=== PATIENT | male | born 1980 | race African-American/Black ===

== ENCOUNTER 2022-07-19 12:07 | Inpatient (IN) | payer OTHER ==
[2022-07-19 13:27] VITALS: BMI 27.3
[2022-07-19] MEDS ORDERED: BISMUTH SUBSALICYLATE 524 MG/30 ML PO PRN (16:02)
[2022-07-19] MEDS ORDERED: IBUPROFEN 400 MG TABLET (FP) PO PRN (16:02)
[2022-07-19] MEDS ORDERED: DICYCLOMINE HCL 10 MG CAPSULE PO PRN (16:02)
[2022-07-19] MEDS ORDERED: MAGNESIUM HYDROX 2400MG/30ML ORAL SUSPENSION 30 ML CUP PO PRN (16:02)
[2022-07-19] MEDS ORDERED: MAGNESIUM CITRATE 300 ML BOTTLE PO PRN (16:02)
[2022-07-19] MEDS ORDERED: METHOCARBAMOL 500 MG TABLET PO PRN (16:02)
[2022-07-19] MEDS ORDERED: IBUPROFEN 600 MG TABLET (FP) PO PRN (16:02)
[2022-07-19] MEDS ORDERED: ONDANSETRON *ODT* 4 MG TABLET SL PRN (16:02)
[2022-07-19] MEDS ORDERED: LOPERAMIDE HCL 2 MG CAPSULE PO PRN (16:02)
[2022-07-19] MEDS ORDERED: ACETAMINOPHEN 325 MG TABLET (FP) PO PRN ×2 (16:02)
[2022-07-19] MEDS ORDERED: NALOXONE HCL (KLOXXADO) 8 MG SPRAY NS PRN (16:02)
[2022-07-19] MEDS ORDERED: MAG HYDROX/AL HYDROX/SIMETH 30 ML UNIT-DOSE CUP PO PRN (16:02)
[2022-07-19] MEDS ORDERED: BENZOCAINE/MENTHOL (CHLORASEPTIC ) LOZENGE MM PRN (16:02)
[2022-07-19] MEDS: NICOTINE 21 MG/24 HOURS TOPICAL PATCH TD SCH (19:53)
[2022-07-19] MEDS: PRENATAL VITAMINS W/ FOLIC ACID TABLET (FP) PO SCH (19:54)
[2022-07-19] MEDS: hydrOXYzine PAMOATE 25 MG CAPSULE (FP) PO SCH ×2 (19:54→22:14)
[2022-07-19] MEDS: THIAMINE HCL 100 MG TABLET (FP) PO SCH (22:14)
[2022-07-19] MEDS: MELATONIN 5 MG TABLETS PO SCH (22:15)
[2022-07-20] MEDS: hydrOXYzine PAMOATE 25 MG CAPSULE (FP) PO SCH ×5 (06:40→22:23)
[2022-07-20] MEDS: PRENATAL VITAMINS W/ FOLIC ACID TABLET (FP) PO SCH (10:26)
[2022-07-20] MEDS: NICOTINE 21 MG/24 HOURS TOPICAL PATCH TD SCH (10:27)
[2022-07-20] MEDS: PERPHENAZINE 2 MG TABLET PO SCH ×3 (10:27→22:23)
[2022-07-20 12:51] LABS: HEMATOCRIT 38.6 % (35.4-49); HEMOGLOBIN 13.2 GM/dL (11.7-16.9); MCH 32.1 pg (25.7-33.7); MCHC 34.2 g/dl (32.0-35.9); MEAN CELL VOLUME 93.8 fl (80-96); MEAN PLT VOLUME 10.1 fl (7.5-11.1); PLATELET COUNT 137 10^3/uL (134-434); RBC 4.12 M/mm3 (4.00-5.60); RDW 13.5 % (11.9-15.9); WHITE BLOOD COUNT 7.2 K/mm3 (4.0-10.0)
[2022-07-20 12:57] LABS: ALBUMIN 3.3 g/dl (3.4-5.0); BLOOD UREA NITROGEN 9.2 mg/dL (7-18); CALCIUM 9.5 mg/dL (8.5-10.1)
[2022-07-20 13:00] LABS: CREATININE 1.1 mg/dL (0.55-1.3)
[2022-07-20 13:02] LABS: BILIRUBIN,TOTAL 0.5 mg/dL (0.2-1)
[2022-07-20] MEDS: NICOTINE 10 MG CARTRIDGE (INHALER) IH PRN (18:52)
[2022-07-20] MEDS ORDERED: chlordiazePOXIDE HCL 25 MG CAPSULE PO PRN (20:44)
[2022-07-20] MEDS: chlordiazePOXIDE HCL 25 MG CAPSULE PO SCH (22:23)
[2022-07-20] MEDS: THIAMINE HCL 100 MG TABLET (FP) PO SCH (22:23)
[2022-07-20] MEDS: MELATONIN 5 MG TABLETS PO SCH (22:23)
[2022-07-21] MEDS: hydrOXYzine PAMOATE 25 MG CAPSULE (FP) PO SCH ×3 (05:43→15:12)
[2022-07-21] MEDS: chlordiazePOXIDE HCL 25 MG CAPSULE PO SCH ×2 (05:43→10:38)
[2022-07-21 06:05] VITALS: RESP 18
[2022-07-21] MEDS: NICOTINE 10 MG CARTRIDGE (INHALER) IH PRN ×2 (06:56→15:26)
[2022-07-21] MEDS: PRENATAL VITAMINS W/ FOLIC ACID TABLET (FP) PO SCH (10:37)
[2022-07-21] MEDS: PERPHENAZINE 2 MG TABLET PO SCH (10:37)
[2022-07-21] MEDS: NICOTINE 21 MG/24 HOURS TOPICAL PATCH TD SCH (10:39)
[2022-07-21 18:26] VITALS: BP 146/100; PULSE 61; TEMP 97.2
[2022-07-21] MEDS ORDERED: chlordiazePOXIDE HCL 10 MG CAPSULE PO SCH (23:00)
[2022-07-22] MEDS ORDERED: chlordiazePOXIDE HCL 10 MG CAPSULE PO SCH (05:00)
[2022-07-23] MEDS ORDERED: chlordiazePOXIDE HCL 10 MG CAPSULE PO PRN
[2022-07-23] MEDS ORDERED: chlordiazePOXIDE HCL 10 MG CAPSULE PO ONE (05:00)
== END 2022-07-21 17:23 | disposition left against medical advice (07) | DRG 894 ==
LOC: YASAS 12:07 → Y3N 16:19 → UNDOADMIN 16:19
PROVIDERS: ADMIT Allergy & Immunology; ATTEND Surgery
PROC: HZ2ZZZZ Detoxification Services for Substance Abuse Treatment (ICD-10-PCS; principal; 2022-07-19)
DX: F10.230 Alcohol dependence with withdrawal, uncomplicated (principal); F17.210 Nicotine dependence, cigarettes, uncomplicated; F20.9 Schizophrenia, unspecified; I10 Essential (primary) hypertension; E11.9 Type 2 diabetes mellitus without complications; Z79.84 Long term (current) use of oral hypoglycemic drugs; Z59.02 Unsheltered homelessness
CPT/HCPCS: 36415; 80053; 80178; 82962; 85027; 86780; 93005; 93010; C9803-CS; U0003; U0005

== ENCOUNTER 2022-07-22 15:16 | Inpatient (IN) | payer OTHER ==
[2022-07-22 17:47] VITALS: BMI 27.8
[2022-07-22] MEDS ORDERED: NICOTINE 10 MG CARTRIDGE (INHALER) IH PRN (18:10)
[2022-07-22] MEDS ORDERED: LOPERAMIDE HCL 2 MG CAPSULE PO PRN (18:10)
[2022-07-22] MEDS ORDERED: DICYCLOMINE HCL 10 MG CAPSULE PO PRN (18:10)
[2022-07-22] MEDS ORDERED: IBUPROFEN 400 MG TABLET (FP) PO PRN (18:10)
[2022-07-22] MEDS ORDERED: ONDANSETRON *ODT* 4 MG TABLET SL PRN (18:10)
[2022-07-22] MEDS ORDERED: MAG HYDROX/AL HYDROX/SIMETH 30 ML UNIT-DOSE CUP PO PRN (18:10)
[2022-07-22] MEDS ORDERED: IBUPROFEN 600 MG TABLET (FP) PO PRN (18:10)
[2022-07-22] MEDS ORDERED: BENZOCAINE/MENTHOL (CHLORASEPTIC ) LOZENGE MM PRN (18:10)
[2022-07-22] MEDS ORDERED: METHOCARBAMOL 500 MG TABLET PO PRN (18:10)
[2022-07-22] MEDS ORDERED: ACETAMINOPHEN 325 MG TABLET (FP) PO PRN ×2 (18:10)
[2022-07-22] MEDS ORDERED: NALOXONE HCL (KLOXXADO) 8 MG SPRAY NS PRN (18:10)
[2022-07-22] MEDS ORDERED: BISMUTH SUBSALICYLATE 524 MG/30 ML PO PRN (18:10)
[2022-07-22] MEDS ORDERED: MAGNESIUM HYDROX 2400MG/30ML ORAL SUSPENSION 30 ML CUP PO PRN (18:10)
[2022-07-22] MEDS ORDERED: MAGNESIUM CITRATE 300 ML BOTTLE PO PRN (18:10)
[2022-07-22] MEDS: PRENATAL VITAMINS W/ FOLIC ACID TABLET (FP) PO SCH (18:26)
[2022-07-22] MEDS: NICOTINE 21 MG/24 HOURS TOPICAL PATCH TD SCH (18:26)
[2022-07-22] MEDS ORDERED: LITHIUM CARBONATE 300 MG CAPSULE PO SCH (22:00)
[2022-07-22] MEDS: hydrOXYzine PAMOATE 25 MG CAPSULE (FP) PO SCH (22:31)
[2022-07-22] MEDS: THIAMINE HCL 100 MG TABLET (FP) PO SCH (22:31)
[2022-07-22] MEDS: MELATONIN 5 MG TABLETS PO SCH (22:31)
[2022-07-22] MEDS: metFORMIN HCL 500 MG TABLET (FP) PO SCH (22:32)
[2022-07-23] MEDS: hydrOXYzine PAMOATE 25 MG CAPSULE (FP) PO SCH ×5 (05:31→22:50)
[2022-07-23] MEDS: PERPHENAZINE 2 MG TABLET PO SCH ×2 (10:35→22:50)
[2022-07-23] MEDS: metFORMIN HCL 500 MG TABLET (FP) PO SCH ×2 (10:35→22:35)
[2022-07-23] MEDS: LITHIUM CARBONATE 150 MG CAPSULE PO SCH ×2 (10:35→22:50)
[2022-07-23] MEDS: PRENATAL VITAMINS W/ FOLIC ACID TABLET (FP) PO SCH (10:35)
[2022-07-23] MEDS: NICOTINE 21 MG/24 HOURS TOPICAL PATCH TD SCH (10:37)
[2022-07-23 11:29] LABS: HEMATOCRIT 40.5 % (35.4-49); HEMOGLOBIN 13.5 GM/dL (11.7-16.9); MCH 31.4 pg (25.7-33.7); MCHC 33.3 g/dl (32.0-35.9); MEAN CELL VOLUME 94.2 fl (80-96); MEAN PLT VOLUME 10.1 fl (7.5-11.1); PLATELET COUNT 145 10^3/uL (134-434); RDW 13.9 % (11.9-15.9)
[2022-07-23 11:32] LABS: CALCIUM 9.3 mg/dL (8.5-10.1)
[2022-07-23 11:33] LABS: ALBUMIN 3.2 g/dl (3.4-5.0); BLOOD UREA NITROGEN 10.7 mg/dL (7-18)
[2022-07-23 11:36] LABS: CREATININE 1.1 mg/dL (0.55-1.3)
[2022-07-23 11:38] LABS: BILIRUBIN,TOTAL 0.4 mg/dL (0.2-1); TOT PROT 5.9 g/dl (6.4-8.2)
[2022-07-23] MEDS: THIAMINE HCL 100 MG TABLET (FP) PO SCH (22:49)
[2022-07-23] MEDS: MELATONIN 5 MG TABLETS PO SCH (22:49)
[2022-07-24] MEDS: hydrOXYzine PAMOATE 25 MG CAPSULE (FP) PO SCH (05:55)
[2022-07-24 09:04] VITALS: BP 141/91; PULSE 72; RESP 16; TEMP 97.3
[2022-07-24] MEDS: LITHIUM CARBONATE 150 MG CAPSULE PO SCH (09:24)
[2022-07-24] MEDS: PERPHENAZINE 2 MG TABLET PO SCH (09:24)
[2022-07-24] MEDS: PRENATAL VITAMINS W/ FOLIC ACID TABLET (FP) PO SCH (09:24)
[2022-07-24] MEDS: metFORMIN HCL 500 MG TABLET (FP) PO SCH (09:24)
[2022-07-24] MEDS: NICOTINE 21 MG/24 HOURS TOPICAL PATCH TD SCH (09:25)
== END 2022-07-24 09:44 | disposition home or self-care (01) | DRG 897 ==
LOC: YASAS 15:16 → Y6N 18:18
PROVIDERS: ADMIT Allergy & Immunology; ATTEND Surgery
PROC: HZ2ZZZZ Detoxification Services for Substance Abuse Treatment (ICD-10-PCS; principal; 2022-07-22)
DX: F10.230 Alcohol dependence with withdrawal, uncomplicated (principal); F17.210 Nicotine dependence, cigarettes, uncomplicated; F25.0 Schizoaffective disorder, bipolar type; F10.24 Alcohol dependence with alcohol-induced mood disorder; I10 Essential (primary) hypertension; E11.9 Type 2 diabetes mellitus without complications; Z79.84 Long term (current) use of oral hypoglycemic drugs
CPT/HCPCS: 36415; 80053; 80178; 85027; 86780

== ENCOUNTER 2023-03-30 10:28 | Inpatient (IN) | payer OTHER ==
[2023-03-30 10:48] VITALS: BMI 26.6
[2023-03-30] MEDS ORDERED: LOPERAMIDE HCL 2 MG CAPSULE PO PRN (11:15)
[2023-03-30] MEDS ORDERED: NICOTINE 10 MG CARTRIDGE (INHALER) IH PRN (11:15)
[2023-03-30] MEDS ORDERED: ACETAMINOPHEN 325 MG TABLET (FP) PO PRN (11:15)
[2023-03-30] MEDS ORDERED: BISMUTH SUBSALICYLATE 262 MG/15 ML BTL PO PRN (11:15)
[2023-03-30] MEDS ORDERED: POLYETHYLENE GLYCOL (HEALTHYLAX) 3350 17 GM PACKET PO PRN (11:15)
[2023-03-30] MEDS ORDERED: BENZOCAINE/MENTHOL (CHLORASEPTIC ) LOZENGE MM PRN (11:15)
[2023-03-30] MEDS ORDERED: IBUPROFEN 400 MG TABLET (FP) PO PRN (11:15)
[2023-03-30] MEDS ORDERED: AMMONIUM LACTATE 12% LOTION 225 GM BOTTLE TP PRN (11:15)
[2023-03-30] MEDS ORDERED: NALOXONE HCL 0.4 MG/ML VIAL IM PRN (11:15)
[2023-03-30] MEDS ORDERED: ONDANSETRON *ODT* 4 MG TABLET SL PRN (11:15)
[2023-03-30] MEDS ORDERED: MAG HYDROX/AL HYDROX/SIMETH 30 ML UNIT-DOSE CUP PO PRN (11:15)
[2023-03-30] MEDS ORDERED: NICOTINE POLACRILEX 2 MG GUM BUC PRN (11:15)
[2023-03-30] MEDS ORDERED: COLLOIDAL OATMEAL 1 BAR EACH TP PRN (11:15)
[2023-03-30] MEDS ORDERED: NALOXONE HCL (KLOXXADO) 8 MG SPRAY NS PRN (11:15)
[2023-03-30] MEDS ORDERED: IBUPROFEN 600 MG TABLET (FP) PO PRN (11:15)
[2023-03-30] MEDS ORDERED: BENZONATATE 200 MG CAPSULE PO PRN (11:15)
[2023-03-30] MEDS ORDERED: MAGNESIUM HYDROX 2400MG/30ML ORAL SUSPENSION 30 ML CUP PO PRN (11:15)
[2023-03-30] MEDS ORDERED: DICYCLOMINE HCL 10 MG CAPSULE PO PRN (11:15)
[2023-03-30] MEDS ORDERED: guaiFENesin 600 MG TABLET.ER (FP) PO PRN (11:15)
[2023-03-30] MEDS ORDERED: NICOTINE 21 MG/24 HOURS TOPICAL PATCH ONE (12:11)
[2023-03-30] MEDS: NICOTINE 21 MG/24 HOURS TOPICAL PATCH TD SCH (12:15)
[2023-03-30] MEDS: metFORMIN HCL 500 MG TABLET (FP) PO SCH ×2 (12:19→17:04)
[2023-03-30] MEDS ORDERED: chlordiazePOXIDE HCL 25 MG CAPSULE PO ONE (14:00)
[2023-03-30 15:54] LABS: HEMATOCRIT 40.8 % (35.4-49); HEMOGLOBIN 14.3 GM/dL (11.7-16.9); MCH 31.9 pg (25.7-33.7); MCHC 35.2 g/dl (32.0-35.9); MEAN CELL VOLUME 90.8 fl (80-96); MEAN PLT VOLUME 10.8 fl (7.5-11.1); PLATELET COUNT 163 10^3/uL (134-434); RBC 4.49 M/mm3 (4.00-5.60); RDW 14.1 % (11.9-15.9); WHITE BLOOD COUNT 8.8 K/mm3 (4.0-10.0)
[2023-03-30] MEDS: INSULIN SLIDING SCALE (NOVOLOG) 1 VIAL SQ SCH ×2 (16:22→21:06)
[2023-03-30 16:35] LABS: POTASSIUM 4.2 mmol/L (3.5-5.1)
[2023-03-30 16:38] LABS: ALBUMIN 4.2 g/dl (3.4-5.0); CALCIUM 10.4 mg/dL (8.5-10.1)
[2023-03-30 16:39] LABS: BLOOD UREA NITROGEN 12.9 mg/dL (7-18)
[2023-03-30 16:42] LABS: CREATININE 1.3 mg/dL (0.55-1.3)
[2023-03-30 16:43] LABS: BILIRUBIN,TOTAL 0.8 mg/dL (0.2-1); TOT PROT 7.4 g/dl (6.4-8.2)
[2023-03-30] MEDS: chlordiazePOXIDE HCL 25 MG CAPSULE PO SCH ×2 (17:04→22:11)
[2023-03-30] MEDS: MELATONIN 5 MG TABLETS PO SCH (22:12)
[2023-03-30] MEDS: THIAMINE HCL 100 MG TABLET (FP) PO SCH (22:12)
[2023-03-30] MEDS: PERPHENAZINE 2 MG TABLET PO SCH (22:12)
[2023-03-31] MEDS: chlordiazePOXIDE HCL 25 MG CAPSULE PO SCH ×4 (05:18→22:21)
[2023-03-31] MEDS: INSULIN SLIDING SCALE (NOVOLOG) 1 VIAL SQ SCH ×4 (06:57→21:40)
[2023-03-31] MEDS: metFORMIN HCL 500 MG TABLET (FP) PO SCH ×2 (07:42→17:30)
[2023-03-31] MEDS: PRENATAL VITAMINS W/ FOLIC ACID TABLET (FP) PO SCH (10:17)
[2023-03-31] MEDS: NICOTINE 21 MG/24 HOURS TOPICAL PATCH TD SCH (10:17)
[2023-03-31] MEDS: NIFEdipine E.R 60 MG TABLET PO SCH (10:18)
[2023-03-31] MEDS: PERPHENAZINE 2 MG TABLET PO SCH ×2 (10:18→22:22)
[2023-03-31] MEDS: METHOCARBAMOL 500 MG TABLET PO PRN (18:04)
[2023-03-31] MEDS: MELATONIN 5 MG TABLETS PO SCH (22:21)
[2023-03-31] MEDS: THIAMINE HCL 100 MG TABLET (FP) PO SCH (22:21)
[2023-04-01] MEDS: chlordiazePOXIDE HCL 25 MG CAPSULE PO SCH ×4 (05:33→22:06)
[2023-04-01] MEDS: metFORMIN HCL 500 MG TABLET (FP) PO SCH ×2 (06:30→17:24)
[2023-04-01] MEDS: INSULIN SLIDING SCALE (NOVOLOG) 1 VIAL SQ SCH ×4 (06:31→22:06)
[2023-04-01] MEDS: NICOTINE 21 MG/24 HOURS TOPICAL PATCH TD SCH (10:20)
[2023-04-01] MEDS: PRENATAL VITAMINS W/ FOLIC ACID TABLET (FP) PO SCH (10:20)
[2023-04-01] MEDS: NIFEdipine E.R 60 MG TABLET PO SCH (10:20)
[2023-04-01] MEDS: PERPHENAZINE 2 MG TABLET PO SCH ×2 (10:20→22:06)
[2023-04-01] MEDS: THIAMINE HCL 100 MG TABLET (FP) PO SCH (22:06)
[2023-04-01] MEDS: MELATONIN 5 MG TABLETS PO SCH (22:06)
[2023-04-02] MEDS: chlordiazePOXIDE HCL 10 MG CAPSULE PO SCH ×4 (05:30→22:28)
[2023-04-02] MEDS: metFORMIN HCL 500 MG TABLET (FP) PO SCH ×2 (06:13→17:10)
[2023-04-02] MEDS: INSULIN SLIDING SCALE (NOVOLOG) 1 VIAL SQ SCH ×4 (06:14→22:57)
[2023-04-02] MEDS: NIFEdipine E.R 60 MG TABLET PO SCH (10:30)
[2023-04-02] MEDS: PRENATAL VITAMINS W/ FOLIC ACID TABLET (FP) PO SCH (10:31)
[2023-04-02] MEDS: PERPHENAZINE 2 MG TABLET PO SCH ×2 (10:31→22:28)
[2023-04-02] MEDS: NICOTINE 21 MG/24 HOURS TOPICAL PATCH TD SCH (10:31)
[2023-04-02] MEDS: LITHIUM CARBONATE 300 MG CAPSULE PO SCH ×2 (12:36→22:28)
[2023-04-02] MEDS: MELATONIN 5 MG TABLETS PO SCH (22:27)
[2023-04-02] MEDS: THIAMINE HCL 100 MG TABLET (FP) PO SCH (22:28)
[2023-04-03] MEDS: METHOCARBAMOL 500 MG TABLET PO PRN (04:03)
[2023-04-03] MEDS ORDERED: INSULIN SLIDING SCALE (NOVOLOG) 1 VIAL SQ ONE (05:58)
[2023-04-03] MEDS: chlordiazePOXIDE HCL 10 MG CAPSULE PO SCH ×2 (05:59→17:29)
[2023-04-03] MEDS: metFORMIN HCL 500 MG TABLET (FP) PO SCH ×2 (06:10→17:29)
[2023-04-03] MEDS: INSULIN SLIDING SCALE (NOVOLOG) 1 VIAL SQ SCH ×2 (06:11→11:38)
[2023-04-03] MEDS: NIFEdipine E.R 60 MG TABLET PO SCH (10:25)
[2023-04-03] MEDS: LITHIUM CARBONATE 300 MG CAPSULE PO SCH ×2 (10:25→22:13)
[2023-04-03] MEDS: PRENATAL VITAMINS W/ FOLIC ACID TABLET (FP) PO SCH (10:25)
[2023-04-03] MEDS: NICOTINE 21 MG/24 HOURS TOPICAL PATCH TD SCH (10:26)
[2023-04-03] MEDS: PERPHENAZINE 2 MG TABLET PO SCH ×2 (10:27→22:13)
[2023-04-03 18:02] VITALS: RESP 18
[2023-04-03] MEDS: MELATONIN 5 MG TABLETS PO SCH (22:13)
[2023-04-03] MEDS: THIAMINE HCL 100 MG TABLET (FP) PO SCH (22:13)
[2023-04-04] MEDS ORDERED: chlordiazePOXIDE HCL 10 MG CAPSULE PO ONE (05:00)
[2023-04-04] MEDS: metFORMIN HCL 500 MG TABLET (FP) PO SCH (06:08)
[2023-04-04] MEDS: PERPHENAZINE 2 MG TABLET PO SCH (10:06)
[2023-04-04] MEDS: NICOTINE 21 MG/24 HOURS TOPICAL PATCH TD SCH (10:06)
[2023-04-04] MEDS: NIFEdipine E.R 60 MG TABLET PO SCH (10:06)
[2023-04-04] MEDS: PRENATAL VITAMINS W/ FOLIC ACID TABLET (FP) PO SCH (10:06)
[2023-04-04] MEDS: LITHIUM CARBONATE 300 MG CAPSULE PO SCH (10:06)
[2023-04-04 13:03] VITALS: BP 103/66; PULSE 75; TEMP 97.7
[2023-04-04 15:17] LABS: CALCIUM 9.7 mg/dL (8.5-10.1)
== END 2023-04-04 15:38 | disposition other institution (70) | DRG 897 ==
LOC: YASAS 10:28 → Y3N 11:58
PROVIDERS: ADMIT Allergy & Immunology; ATTEND Surgery
PROC: HZ2ZZZZ Detoxification Services for Substance Abuse Treatment (ICD-10-PCS; principal; 2023-03-30)
DX: F10.230 Alcohol dependence with withdrawal, uncomplicated (principal); F14.20 Cocaine dependence, uncomplicated; F17.210 Nicotine dependence, cigarettes, uncomplicated; F31.9 Bipolar disorder, unspecified; F25.0 Schizoaffective disorder, bipolar type; F41.8 Other specified anxiety disorders; G47.00 Insomnia, unspecified; I10 Essential (primary) hypertension; E83.52 Hypercalcemia; E11.9 Type 2 diabetes mellitus without complications; Z79.84 Long term (current) use of oral hypoglycemic drugs; R74.8 Abnormal levels of other serum enzymes
CPT/HCPCS: 36415; 80053; 80178; 82310; 82962; 84450; 84460; 85027; 86780; 87635; 87811

== ENCOUNTER 2023-04-04 15:43 | Inpatient (IN) | payer OTHER ==
[2023-04-04 16:06] VITALS: RESP 18
[2023-04-04] MEDS ORDERED: IBUPROFEN 600 MG TABLET (FP) PO PRN (16:21)
[2023-04-04] MEDS ORDERED: P-EPHED 60MG/TRIPROLIDI 2.5MG TABLET PO PRN (16:21)
[2023-04-04] MEDS ORDERED: NICOTINE 10 MG CARTRIDGE (INHALER) IH PRN (16:21)
[2023-04-04] MEDS ORDERED: BENZOCAINE/MENTHOL (CHLORASEPTIC ) LOZENGE MM PRN (16:21)
[2023-04-04] MEDS ORDERED: NALOXONE HCL 0.4 MG/ML VIAL IVPUSH PRN (16:21)
[2023-04-04] MEDS ORDERED: guaiFENesin 600 MG TABLET.ER (FP) PO PRN (16:21)
[2023-04-04] MEDS ORDERED: NICOTINE POLACRILEX 2 MG GUM BUC PRN (16:21)
[2023-04-04] MEDS ORDERED: BENZONATATE 200 MG CAPSULE PO PRN (16:21)
[2023-04-04] MEDS ORDERED: NALOXONE HCL (KLOXXADO) 8 MG SPRAY NS PRN (16:21)
[2023-04-04] MEDS ORDERED: COLLOIDAL OATMEAL 1 BAR EACH TP PRN (16:21)
[2023-04-04] MEDS ORDERED: MAG HYDROX/AL HYDROX/SIMETH 30 ML UNIT-DOSE CUP PO PRN (16:21)
[2023-04-04] MEDS ORDERED: IBUPROFEN 400 MG TABLET (FP) PO PRN (16:21)
[2023-04-04] MEDS ORDERED: AMMONIUM LACTATE 12% LOTION 225 GM BOTTLE TP PRN (16:21)
[2023-04-04] MEDS ORDERED: MAGNESIUM HYDROX 2400MG/30ML ORAL SUSPENSION 30 ML CUP PO PRN (16:21)
[2023-04-04] MEDS ORDERED: LOPERAMIDE HCL 2 MG CAPSULE PO PRN (16:21)
[2023-04-04] MEDS ORDERED: NICOTINE 7 MG/24 HOURS TOPICAL PATCH TD PRN (16:21)
[2023-04-04] MEDS ORDERED: ACETAMINOPHEN 325 MG TABLET (FP) PO PRN (16:21)
[2023-04-04] MEDS ORDERED: POLYETHYLENE GLYCOL (HEALTHYLAX) 3350 17 GM PACKET PO PRN (16:21)
[2023-04-04] MEDS ORDERED: MELATONIN 5 MG TABLETS PO PRN (16:21)
[2023-04-04] MEDS: metFORMIN HCL 500 MG TABLET (FP) PO SCH (16:51)
[2023-04-04] MEDS: METHOCARBAMOL 500 MG TABLET PO PRN (21:29)
[2023-04-04] MEDS: THIAMINE HCL 100 MG TABLET (FP) PO SCH (21:29)
[2023-04-04] MEDS ORDERED: LITHIUM CARBONATE 300 MG CAPSULE PO ONE (22:00)
[2023-04-04] MEDS ORDERED: PERPHENAZINE 8 MG TABLET PO ONE (22:00)
[2023-04-04] MEDS ORDERED: PERPHENAZINE 2 MG TABLET PO ONE (22:00)
[2023-04-05] MEDS: metFORMIN HCL 500 MG TABLET (FP) PO SCH ×2 (07:22→16:42)
[2023-04-05] MEDS ORDERED: PERPHENAZINE 2 MG TABLET PO SCH (10:00)
[2023-04-05] MEDS: PRENATAL VITAMINS W/ FOLIC ACID TABLET (FP) PO SCH (10:04)
[2023-04-05] MEDS: NIFEdipine E.R 60 MG TABLET PO SCH (10:04)
[2023-04-05] MEDS: LITHIUM CARBONATE 300 MG CAPSULE PO SCH ×2 (10:05→21:24)
[2023-04-05] MEDS: THIAMINE HCL 100 MG TABLET (FP) PO SCH (21:24)
[2023-04-05] MEDS: PERPHENAZINE 4 MG TABLET PO SCH (21:26)
[2023-04-06] MEDS: metFORMIN HCL 500 MG TABLET (FP) PO SCH ×2 (06:15→16:39)
[2023-04-06] MEDS: PRENATAL VITAMINS W/ FOLIC ACID TABLET (FP) PO SCH (09:51)
[2023-04-06] MEDS: NIFEdipine E.R 60 MG TABLET PO SCH (09:51)
[2023-04-06] MEDS: LITHIUM CARBONATE 300 MG CAPSULE PO SCH ×2 (09:52→21:23)
[2023-04-06] MEDS: PERPHENAZINE 4 MG TABLET PO SCH ×2 (09:52→21:24)
[2023-04-06] MEDS: THIAMINE HCL 100 MG TABLET (FP) PO SCH (21:23)
[2023-04-07] MEDS: metFORMIN HCL 500 MG TABLET (FP) PO SCH ×2 (07:11→17:10)
[2023-04-07] MEDS: NIFEdipine E.R 60 MG TABLET PO SCH (09:43)
[2023-04-07] MEDS: PERPHENAZINE 4 MG TABLET PO SCH ×2 (09:43→21:31)
[2023-04-07] MEDS: PRENATAL VITAMINS W/ FOLIC ACID TABLET (FP) PO SCH (09:43)
[2023-04-07] MEDS: LITHIUM CARBONATE 300 MG CAPSULE PO SCH ×2 (09:43→21:32)
[2023-04-07] MEDS: THIAMINE HCL 100 MG TABLET (FP) PO SCH (21:32)
[2023-04-08] MEDS: metFORMIN HCL 500 MG TABLET (FP) PO SCH ×2 (06:51→17:05)
[2023-04-08] MEDS: LITHIUM CARBONATE 300 MG CAPSULE PO SCH ×2 (10:09→22:15)
[2023-04-08] MEDS: PERPHENAZINE 4 MG TABLET PO SCH ×2 (10:10→22:15)
[2023-04-08] MEDS: NIFEdipine E.R 60 MG TABLET PO SCH (10:10)
[2023-04-08] MEDS: PRENATAL VITAMINS W/ FOLIC ACID TABLET (FP) PO SCH (10:10)
[2023-04-08] MEDS: THIAMINE HCL 100 MG TABLET (FP) PO SCH (22:15)
[2023-04-09] MEDS: METHOCARBAMOL 500 MG TABLET PO PRN ×2 (02:46→21:30)
[2023-04-09] MEDS: metFORMIN HCL 500 MG TABLET (FP) PO SCH ×2 (06:47→16:36)
[2023-04-09] MEDS: PRENATAL VITAMINS W/ FOLIC ACID TABLET (FP) PO SCH (09:51)
[2023-04-09] MEDS: NIFEdipine E.R 60 MG TABLET PO SCH (09:52)
[2023-04-09] MEDS: LITHIUM CARBONATE 300 MG CAPSULE PO SCH ×2 (09:52→21:18)
[2023-04-09] MEDS: PERPHENAZINE 4 MG TABLET PO SCH ×2 (09:52→21:19)
[2023-04-09] MEDS: THIAMINE HCL 100 MG TABLET (FP) PO SCH (21:18)
[2023-04-10] MEDS: metFORMIN HCL 500 MG TABLET (FP) PO SCH (06:34)
[2023-04-10 07:22] VITALS: TEMP 97.1
[2023-04-10 09:26] VITALS: BP 135/66; PULSE 71
[2023-04-10] MEDS: NIFEdipine E.R 60 MG TABLET PO SCH (09:59)
[2023-04-10] MEDS: LITHIUM CARBONATE 300 MG CAPSULE PO SCH (09:59)
[2023-04-10] MEDS: PRENATAL VITAMINS W/ FOLIC ACID TABLET (FP) PO SCH (09:59)
[2023-04-10] MEDS: PERPHENAZINE 4 MG TABLET PO SCH (10:00)
== END 2023-04-10 10:45 | disposition home or self-care (01) | DRG 897 ==
LOC: YASAS 15:43 → Y5N 15:44
PROVIDERS: ADMIT Allergy & Immunology; ATTEND Psychiatry & Neurology Pain Medicine
PROC: HZ2ZZZZ Detoxification Services for Substance Abuse Treatment (ICD-10-PCS; principal; 2023-04-04)
DX: F10.20 Alcohol dependence, uncomplicated (principal); F14.20 Cocaine dependence, uncomplicated; F17.210 Nicotine dependence, cigarettes, uncomplicated; F41.8 Other specified anxiety disorders; F25.0 Schizoaffective disorder, bipolar type; E11.9 Type 2 diabetes mellitus without complications; Z79.84 Long term (current) use of oral hypoglycemic drugs; E83.52 Hypercalcemia; G47.00 Insomnia, unspecified; R94.5 Abnormal results of liver function studies
CPT/HCPCS: 36415; 80178; 82962